=== PATIENT | male | born 1985 | race Native Hawaiian/Other Pacific Islander ===

== ENCOUNTER 2019-03-12 23:05 | Emergency (ER) | payer OTHER ==
[~2019-03-12] VITALS: Ht 188 cm; Wt 154.2 kg
[2019-03-13 00:07] VITALS: BP 139/93; TEMP 98.2
== END 2019-03-13 00:18 | disposition home or self-care (01) ==
LOC: ED 23:05
DX: K02.9 Dental caries, unspecified (principal); K08.89 Other specified disorders of teeth and supporting structures; K04.7 Periapical abscess without sinus
CPT/HCPCS: 96372; 99283; J1885